=== PATIENT | male | born 1975 | race African-American/Black ===

== ENCOUNTER 2022-09-20 20:36 | Observation (INO) | payer OTHER ==
[2022-09-20 21:43] LABS: Basophils % (A) 1 %; Eosinophils # (A) 0.2 k/uL (0-0.7); Eosinophils % (A) 4 %; HCT 48.3 % (39.0-53.0); HGB 14.8 gm/dL (13.0-17.5); Lymphocytes # (A) 1.2 k/uL (1.0-4.8); Lymphocytes % (A) 18 %; MCH 29.2 pg (25.0-35.0); MCHC 30.6 g/dL (31.0-37.0); MCV 95.4 fL (80.0-100.0); Mean Platelet Volume 7.5; Monocytes # (A) 0.3 k/uL (0-1.0); Monocytes % (A) 5 %; Neutrophils # (A) 4.7 k/uL (1.3-7.7); Neutrophils % (A) 71 %; Platelet Count 302 k/uL (150-450); RBC 5.06 m/uL (4.30-5.90); RDW 15.4 % (11.5-15.5); WBC 6.6 k/uL (3.8-10.6)
[2022-09-20 21:53] LABS: ALT 19 U/L (4-49); AST 24 U/L (17-59); African American GFR (CKD) >90 (>60 ml/min/1.73 sqM); Albumin 2.7 g/dL (3.5-5.0); Alcohol <10 mg/dL; Alkaline Phosphatase 101 U/L (38-126); Amylase 241 U/L (30-110); Anion Gap 2 mmol/L; Blood Urea Nitrogen 9 mg/dL (9-20); Calcium 8.2 mg/dL (8.4-10.2); Carbon Dioxide 29 mmol/L (22-30); Chloride 109 mmol/L (98-107); Glucose 116 mg/dL (74-99); Lipase 1503 U/L (23-300); Non-African American GFR(CKD) >90 (>60 ml/min/1.73 sqM); Potassium 3.8 mmol/L (3.5-5.1); Sodium 140 mmol/L (137-145); Total Bilirubin 0.7 mg/dL (0.2-1.3)
[2022-09-20] MEDS ORDERED: ONDANSETRON 4 MG/2 ML VIAL IVP PRN (22:20)
[2022-09-20] MEDS ORDERED: NALOXONE 0.4 MG/ML 1 ML VIAL IV PRN (22:20)
--- NOTE | 2022-09-20 22:25 | ED ---
General Adult HPI - General Chief complaint: Abdominal Pain Stated complaint: Abdominal Pain Time Seen by Provider: 09/20/22 22:00 Source: patient Mode of arrival: ambulatory Limitations: no limitations - History of Present Illness Initial comments: Dictation was produced using [employer] dictation software. please excuse any grammatical, word or spelling errors. Chief Complaint: 47-year-old male presents to emergency Department with 1 week of abdominal pain History of Present Illness: Patient 47-year-old male presents to the emergency department for epigastric abdominal pain. States that he has history of pancreatitis that he had suffered 2 years ago secondary to alcohol abuse. He is currently at [facility] for alcohol detoxification. Patient states that he has significant epigastric abdominal pain. Mild nausea. He does have poor appetite. Patient was at [facility] and was sent here for further evaluation. Denies any fever, chills or night sweats. The ROS documented in this emergency department record has been reviewed and confirmed by me. Those systems with pertinent positive or negative responses have been documented in the HPI. All other systems are other negative and/or noncontributory. PHYSICAL EXAM: General Impression: Alert and oriented x3, not in acute distress HEENT: Normocephalic atraumatic, extra-ocular movements intact, pupils equal and reactive to light bilaterally, mucous membranes moist. Cardiovascular: Heart regular rate and rhythm Chest: Able to complete full sentences, no retractions, no tachypnea Abdomen: abdomen soft, epigastric palpatory tenderness, non-distended, no or ganomegaly, negative Yarbrough sign Musculoskeletal: Pulses present and equal in all extremities, no peripheral edema Motor: no focal deficits noted Neurological: CN II-XII grossly intact, no focal motor or sensory deficits noted Skin: Intact with no visualized rashes Psych: Normal affect and mood ED course: 47-year-old male presents emergency department for epigastric abdominal pain. Vital signs upon arrival are within acceptable limits. Patient's and no significant acute distress. Laboratory evaluation obtained. CBC unremarkable. Metabolic panel is unremarkable. Lipase level is 1503. L iver enzymes are normal. Patient will be admitted for alcohol induced pancreatic tenderness. Nursing notes and chart review was performed Case discussed Dr. Hinson who is willing to accept patients care for admission. Was pt. sent in by a medical professional or institution (, PA, SEISMOLOGY TEACHER, urgent care, hospital, or alf...) When possible be specific @ -[facility] Did you speak to anyone other than the patient for history (EMS, parent, family, police, friend...)? What history was obtained from this source @ -No Did you review nursing and triage notes (agree or disagree)? Why? @ -I reviewed and agree with nursing and triage notes Were old charts reviewed (outside hosp., previous admission, EMS record, old EKG, old radiological studies, urgent care reports/EKG's, alf records)? Report findings @ -No old charts were reviewed Differential Diagnosis (chest pain, altered mental status, abdominal pain women, abdominal pain men, vaginal bleeding, musculoskeletal, weakness, fever, dyspnea, syncope, headache, dizziness, GI bleed, back pain, seizure, CVA, palpatations, mental health)? @ -Differential Abdominal Pain Men: Appendicitis, cholecystitis, diverticulosis, ischemic bowel, pancreatitis, hepatitis, UTI, gastroenteritis, AAA, incarcerated hernia, bowel obstruction, co nstipation, inflammatory bowel, hepatitis, peptic ulcer disease, splenic infarction, perforated viscus, testicular torsion, this is not meant to be an all-inclusive list EKG interpreted by me (3pts min.). @ -None done X-rays interpreted by me (1pt min.). @ -None done CT interpreted by me (1pt min.). @ -None done U/S interpreted by me (1pt. min.). @ -None done What testing was considered but not performed or refused? (CT, X-rays, U/S, labs)? Why? @ -See above What meds were considered but not given or refused? Why? @ -See above Did you discuss the management of the patient with other professionals (professionals i.e. , PA, SEISMOLOGY TEACHER, lab, RT, psych nurse, social science analyst, talend developer, teacher, anti air warfare operations officer, nurse case management)? Give summary @ -See above Was smoking cessation discussed for >3mins.? @ -No Was critical care preformed (if so, how long)? @ -No Were there social determinants of health that impacted care today? How? (Homelessness, low income, unemployed, alcoholism, drug addiction, transportation, low edu. Level, literacy, decrease access to med. care, care home, rehab)? @ - Alcoholism Was there de-escalation of care discussed even if they declined (Discuss DNR or withdrawal of care, Hospice)? DNR status @ -No What co-morbidities impacted this encounter? (DM, HTN, Smoking, COPD, CAD, Cancer, CVA, ARF, Chemo, Hep., AIDS, mental health diagnosis, sleep apnea, morbid obesity)? @ -None Was patient admitted / discharged? Hospital course, mention meds given and route, prescriptions, significant lab abnormalities, going to OR and other pertinent info. @ -See above Undiagnosed new problem with uncertain prognosis? @ -No Drug Therapy requiring intensive monitoring for toxicity (Heparin, Nitro, Insulin, Cardizem)? @ -No Were any procedures done? @ -No Diagnosis/symptom? Acute, or Chronic, or Acute on Chronic? Uncomplicated (without systemic symptoms) or Complicated (systemic symptoms)? @ -1. Acute uncomplicated pancreatitis Side effects of treatment? @ -No Exacerbation, Progression, or Severe Exacerbation? @ -No Poses a threat to life or bodily function? How? (Chest pain, USA, OR, pneumonia, PE, COPD, DKA, ARF, appy, cholecystitis, CVA, Diverticulitis, Homicidal, Suicidal, threat to staff... and all critical care pts) @ -Yes - Related Data Allergies Allergy/AdvReac Type Severity Reaction Status Date / Time No Known Allergies Allergy Verified 09/20/22 20:51 Review of Systems ROS Statement: Those systems with pertinent positive or pertinent negative responses have been documented in the HPI. ROS Other: All systems not noted in ROS Statement are negative. Past Medical History Additional Past Medical History / Comment(s): pancreatitis History of Any Multi-Drug Resistant Organisms: None Reported Past Surgical History: No Surgical Hx Reported Past Psychological History: No Psychological Hx Reported Smoking Status: Current every day smoker Past Alcohol Use History: Abuse Past Drug Use History: None Reported General Exam Limitations: no limitations Course Vital Signs 09/20/22 20:48 Temperature 97.9 F Pulse Rate 60 Respiratory 20 Rate Blood Pressure 140/83 O2 Sat by Pulse 100 Oximetry Medical Decision Making - Lab Data Result diagrams: 09/20/22 21:35 09/20/22 21:35 Lab Results 09/20/22 09/20/22 Range/Units 21:35 21:35 WBC 6.6 (3.8-10.6) k/uL RBC 5.06 (4.30-5.90) m/uL Hgb 14.8 (13.0-17.5) gm/dL Hct 48.3 (39.0-53.0) % MCV 95.4 (80.0-100.0) fL MCH 29.2 (25.0-35.0) pg MCHC 30.6 L (31.0-37.0) g/dL RDW 15.4 (11.5-15.5) % Plt Count 302 (150-450) k/uL MPV 7.5 Neutrophils % 71 % Lymphocytes % 18 % Monocytes % 5 % Eosinophils % 4 % Basophils % 1 % Neutrophils # 4.7 (1.3-7.7) k/uL Lymphocytes # 1.2 (1.0-4.8) k/uL Monocytes # 0.3 (0-1.0) k/uL Eosinophils # 0.2 (0-0.7) k/uL Basophils # 0.0 (0-0.2) k/uL Sodium 140 (137-145) mmol/L Potassium 3.8 (3.5-5.1) mmol/L Chloride 109 H (98-107) mmol/L Carbon Dioxide 29 (22-30) mmol/L Anion Gap 2 mmol/L BUN 9 (9-20) mg/dL Creatinine 0.63 L (0.66-1.25) mg/dL Est GFR (CKD-EPI)AfAm >90 (>60 ml/min/1.73 sqM) Est GFR (CKD-EPI)NonAf >90 (>60 ml/min/1.73 sqM) Glucose 116 H (74-99) mg/dL Calcium 8.2 L (8.4-10.2) mg/dL Total Bilirubin 0.7 (0.2-1.3) mg/dL AST 24 (17-59) U/L ALT 19 (4-49) U/L Alkaline Phosphatase 101 (38-126) U/L Total Protein 6.0 L (6.3-8.2) g/dL Albumin 2.7 L (3.5-5.0) g/dL Amylase 241 H (30-110) U/L Lipase 1503 H (23-300) U/L Serum Alcohol <10 mg/dL Disposition Clinical Impression: Pancreatitis Disposition: ADMITTED IP TO THIS HOSP Condition: Fair Referrals: Nonstaff,Physician [Primary Care Provider] - 1-2 days Decision Time: 22:25
[2022-09-20] MEDS: SODIUM CHLORIDE 0.9% 1,000 ML IV SCH (22:32)
[2022-09-20] MEDS: HYDROmorphone 1 MG/ML 1 ML SYRINGE IVP PRN (22:41)
[2022-09-21] MEDS: HYDROmorphone 1 MG/ML 1 ML SYRINGE IVP PRN ×2 (03:38→07:33)
[2022-09-21] MEDS: SODIUM CHLORIDE 0.9% 1,000 ML IV SCH ×3 (05:49→21:00)
[2022-09-21 07:48] LABS: Glucose,Whole Blood 82 mg/dL (70-110)
[2022-09-21] MEDS: MORPHINE SULFATE 4 MG/ML SYRINGE IVP PRN ×3 (11:56→20:55)
[2022-09-21 12:01] LABS: Basophils % (A) 1 %; Eosinophils # (A) 0.2 k/uL (0-0.7); Eosinophils % (A) 5 %; HCT 46.9 % (39.0-53.0); HGB 14.2 gm/dL (13.0-17.5); Hypochromasia Slight; Lymphocytes % (A) 24 %; MCH 29.6 pg (25.0-35.0); MCHC 30.2 g/dL (31.0-37.0); Mean Platelet Volume 7.1; Monocytes # (A) 0.2 k/uL (0-1.0); Monocytes % (A) 5 %; Neutrophils # (A) 2.8 k/uL (1.3-7.7); Neutrophils % (A) 64 %; Platelet Count 256 k/uL (150-450); RBC 4.79 m/uL (4.30-5.90); RDW 15.5 % (11.5-15.5); WBC 4.4 k/uL (3.8-10.6)
[2022-09-21 12:16] LABS: African American GFR (CKD) >90 (>60 ml/min/1.73 sqM); Anion Gap 1 mmol/L; Blood Urea Nitrogen 7 mg/dL (9-20); Calcium 8.1 mg/dL (8.4-10.2); Carbon Dioxide 29 mmol/L (22-30); Chloride 109 mmol/L (98-107); Glucose 120 mg/dL (74-99); Lipase 1119 U/L (23-300); Non-African American GFR(CKD) >90 (>60 ml/min/1.73 sqM); Potassium 3.5 mmol/L (3.5-5.1); Sodium 139 mmol/L (137-145)
[2022-09-21] MEDS: hydrOXYzine pamoate 25 MG CAP PO PRN (12:17)
--- NOTE | 2022-09-21 18:37 | P.HPIM ---
History of Present Illness H&P Date: 09/21/22 Chief Complaint: Abdominal pain 47-year-old male presents to the emergency department for epigastric abdominal pain. States that he has history of pancreatitis that he had suffered 2 years ago secondary to alcohol abuse. He is currently at [facility] for alcohol detoxification. Patient states that he has significant epigastric abdominal pain. Mild nausea. He does have poor appetite. Patient was at [facility] and was sent here for further evaluation. Denies any fever, chills or night sweats. Blood work completed in the ER reveals a WBC of 6.6, hemoglobin 14.8 and platelet count of 302, sodium 140, potassium 2.8, BUN/creatinine of 9/0.63; amylase is elevated at 241 and lipase of 1503; blood alcohol level is negative Review of Systems REVIEW OF SYSTEMS: CONSTITUTIONAL: No fever, no malaise, no fatigue. HEENT: No recent visual problems or hearing problems. Denied any sore throat. CARDIOVASCULAR: No chest pain, orthopnea, PND, no palpitations, no syncope. PULMONARY: No shortness of breath, no cough, no hemoptysis. GASTROINTESTINAL: No diarrhea, no nausea, no vomiting, no abdominal pain. NEUROLOGICAL: No headaches, no weakness, no numbness. HEMATOLOGICAL: Denies any bleeding or petechiae. GENITOURINARY: Denies any burning micturition, frequency, or urgency. MUSCULOSKELETAL/RHEUMATOLOGICAL: Denies any joint pain, swelling, or any muscle pain. ENDOCRINE: Denies any polyuria or polydipsia. The rest of the 14-point review of systems is negative. Past Medical History Additional Past Medical History / Comment(s): pancreatitis History of Any Multi-Drug Resistant Organisms: None Reported Past Surgical History: No Surgical Hx Reported Past Psychological History: No Psychological Hx Reported Smoking Status: Current every day smoker Past Alcohol Use History: Abuse Past Drug Use History: None Reported Medications and Allergies Home Medications Medication Instructions Recorded Confirmed Type Ibuprofen [Motrin Ib] 600 mg PO Q6H PRN 09/21/22 09/21/22 History Insulin Aspart [NovoLOG Flexpen] See Protocol SQ DIRECTED 09/21/22 09/21/22 History Insulin Glargine,Hum.rec.anlog 15 units SQ DAILY@0615,0900 09/21/22 09/21/22 History [Lantus Solostar Pen] Omeprazole [PriLOSEC] 20 mg PO BID@0615,1630 09/21/22 09/21/22 History Simethicone [Simethicone Chew] 80 mg PO DAILY@0615 09/21/22 09/21/22 History Allergies Allergy/AdvReac Type Severity Reaction Status Date / Time No Known Allergies Allergy Verified 09/21/22 11:18 Physical Exam Vitals: Vital Signs Temp Pulse Resp BP Pulse Ox 09/21/22 06:30 53 L 16 116/77 100 09/21/22 02:00 52 L 16 118/79 99 09/21/22 01:10 54 L 16 130/101 99 09/20/22 23:08 98.4 F 57 L 16 141/99 100 09/20/22 20:48 97.9 F 60 20 140/83 100 Intake and Output 09/20/22 09/21/22 09/21/22 22:59 06:59 14:59 Other: Weight 75.296 kg PHYSICAL EXAMINATION: GENERAL: The patient is alert and oriented x3, not in any acute distress. Well developed, well nourished. HEENT: Pupils are round and equally reacting to light. EOMI. No scleral icterus. No conjunctival pallor. Normocephalic, atraumatic. No pharyngeal erythema. No thyromegaly. CARDIOVASCULAR: S1 and S2 present. No murmurs, rubs, or gallops. PULMONARY: Chest is clear to auscultation, no wheezing or crackles. ABDOMEN: Soft, nontender, nondistended, normoactive bowel sounds. No palpable organomegaly. MUSCULOSKELETAL: No joint swelling or deformity. EXTREMITIES: No cyanosis, clubbing, or pedal edema. NEUROLOGICAL: Gross neurological examination did not reveal any focal deficits. SKIN: No rashes. Results CBC & Chem 7: 09/21/22 11:47 09/21/22 11:47 Labs: Abnormal Lab Results - Last 24 Hours (Table) 09/20/22 09/20/22 Range/Units 21:35 21:35 MCHC 30.6 L (31.0-37.0) g/dL Chloride 109 H (98-107) mmol/L Creatinine 0.63 L (0.66-1.25) mg/dL Glucose 116 H (74-99) mg/dL Calcium 8.2 L (8.4-10.2) mg/dL Total Protein 6.0 L (6.3-8.2) g/dL Albumin 2.7 L (3.5-5.0) g/dL Amylase 241 H (30-110) U/L Lipase 1503 H (23-300) U/L Assessment and Plan Assessment: 1. Acute pancreatitis - Patient has been placed on IV fluids, IV Protonix; clear liquid diet; pain controlled with IV morphine 4 mg every 4 hours when necessary - Patient initially requested Dilaudid due to uncontrolled pain with morphine but later indicated that Dilaudid is causing him itching and requested to be transitioned back to IV morphine but requested IV Benadryl along with morphine and requesting increased dose; patient is currently sitting up in bed eating Popsicle; reports he is pain-free at this time because of receiving IV morphine just about 15 minutes ago - Patient does seem to be any distress; we will not increase morphine at this time; patient will be given Vistaril for itching 2. Diabetes mellitus; we will monitor Accu-Cheks every before meals and at bedtime with insulin sliding scale; patient can be placed on Lantus 15 units home dose once diet is advanced 3. Gastroesophageal reflux disease; Protonix 40 mg daily DVT prophylaxis; SCDs CODE STATUS; full code
[2022-09-22 02:13] VITALS: RESP 17
[2022-09-22] MEDS: MORPHINE SULFATE 4 MG/ML SYRINGE IVP PRN ×3 (04:14→13:01)
[2022-09-22 06:05] LABS: Glucose,Whole Blood 127 mg/dL (70-110)
[2022-09-22] MEDS: hydrOXYzine pamoate 25 MG CAP PO PRN ×2 (06:30→14:54)
[2022-09-22 08:53] VITALS: BP 128/72; PULSE 61; TEMP 97.9
[2022-09-22 09:12] LABS: African American GFR (CKD) 130.2 (60.0-200.0); Anion Gap 4.8 mmol/L (10.00-18.00); BUN/Creat Ratio 5.86 Ratio (12.00-20.00); Blood Urea Nitrogen 4.1 mg/dL (9.0-27.0); Calcium 8.2 mg/dL (8.7-10.3); Carbon Dioxide 26.2 mmol/L (20.0-27.5); Non-African American GFR(CKD) 112.4 (60.0-200.0)
--- NOTE | 2022-09-23 05:55 | P.DS ---
Providers Date of admission: 09/20/22 22:20 Attending physician: Jose Rafael Hinson Primary care physician: Sonny Morgan [facility] Course: Final diagnosis -Acute pancreatitis, likely due to continued alcohol use -History of extensive alcohol abuse currently in alcohol rehab -Diabetes mellitus, insulin-dependent, uncontrolled with hypoglycemia most likely secondary to poor oral intake -Gastroesophageal reflux disease -Continued ongoing nicotine abuse -DVT prophylaxis; SCDs -full code Discharge disposition Patient is being discharged in a stable condition with guarded prognosis to [facility] for continued alcohol rehab. Patient will follow-up with in the outpatient setting upon discharge. Patient is to continue with hemodialysis as scheduled. Total time taken is greater than 35 minutes. Hospital course This is a 47-year-old male who was recently admitted with abdominal pain nausea and vomiting and poor oral intake being closely monitored. Patient was recently at [facility] for the last couple of days and developed abdominal pain and sent to the ER for further evaluation. Patient found to have elevated lipase and admitted for pancreatitis. Patient was placed on IV hydration along with pain management and lipase is 90 this morning patient reports improvement in nausea and encouraged oral intake. Patient will be started on low fiber diet and slowly advance as tolerated. Patient is medically stable and will be transferred back to [facility] today for continued alcohol rehab. Currently no reports of chest pain, shortness of breath, or palpitations. Patient is afebrile. No reports of nausea or vomiting and patient is tolerating diet. Patient will be discharged back to [facility] rehab for continued care. Encourage the patient to follow-up with primary care provider on discharge along with calling insurance to request a possible GI specialist in the outpatient setting. Physical exam: Gen: This is a 47-year-old male who is awake, alert and oriented 3, well- developed, well-nourished HEENT: Head is atraumatic, normocephalic. Pupils equal, round. Sclerae is anicteric. NECK: Supple. No JVD. No lymphadenopathy. No thyromegaly. LUNGS: Clear to auscultation. No wheezes or rhonchi. No intercostal retrac tions. HEART: Regular rate and rhythm. No murmur. ABDOMEN: Soft. Bowel sounds are present. No masses. No tenderness. EXTREMITIES: No pedal edema. No calf tenderness. NEUROLOGICAL: Patient is awake, alert and oriented x3. Cranial nerves 2 through 12 are grossly intact. Please refer to medication reconciliation sheet for a list of medications. The impression and plan of care has been dictated by Eva Finnegan, Nurse Practitioner as directed. Dr. Lynn MD I have performed a history and examination and MDM of this patient, discussed the same with the dictator, and agree with the dictator's assessment and plan as written ,documented as a scribe. Based on total visit time, I have performed more than 50% of the visit. Patient Condition at Discharge: Fair Plan - Discharge Summary Discharge Rx Participant: Yes New Discharge Prescriptions: Continue Insulin Glargine,Hum.rec.anlog [Lantus Solostar Pen] 15 units SQ DAILY@0615,0900 Omeprazole [PriLOSEC] 20 mg PO BID@0615,1630 Insulin Aspart [NovoLOG Flexpen] See Protocol SQ DIRECTED Ibuprofen [Motrin Ib] 600 mg PO Q6H PRN PRN Reason: Pain Simethicone [Simethicone Chew] 80 mg PO DAILY@0615 Discharge Medication List Ibuprofen [Motrin Ib] 600 mg PO Q6H PRN 09/21/22 [History] Insulin Aspart [NovoLOG Flexpen] See Protocol SQ DIRECTED 09/21/22 [History] Insulin Glargine,Hum.rec.anlog [Lantus Solostar Pen] 15 units SQ DAILY@0615,0900 09/21/22 [History] Omeprazole [PriLOSEC] 20 mg PO BID@0615,1630 09/21/22 [History] Simethicone [Simethicone Chew] 80 mg PO DAILY@0615 09/21/22 [History] Follow up Appointment(s)/Referral(s): Nonstaff,Physician [REFERRING] - 1-2 days Patient Instructions/Handouts: Pancreatitis (DC) Activity/Diet/Wound Care/Special Instructions: Patient is returning to [facility] Recommend follow-up with primary care provider on discharge Please call insurance company and discuss with them about GI (Gastrointestinal specialists that accept your insurance) for outpatient follow-up Slowly advanced diet as tolerated Discharge Disposition: OTHER INSTITUTION NOT DEFINED
== END 2022-09-22 15:37 | disposition other institution (70) ==
LOC: EC 20:36 → 5NMEDONC 22:20 → INTOOBSV 22:20 → 5NMEDONC 09-21 02:19 → 4SSUR 09-21 17:39 → UNDODISIN 09-22 15:37
PROVIDERS: ADMIT Internal Medicine; ATTEND Internal Medicine
DX: K85.90 Acute pancreatitis without necrosis or infection, unspecified (principal); K21.9 Gastro-esophageal reflux disease without esophagitis; F10.10 Alcohol abuse, uncomplicated; F17.200 Nicotine dependence, unspecified, uncomplicated; Y90.0 Blood alcohol level of less than 20 mg/100 ml
CPT/HCPCS: 96376 ×3; 96374; 96375; 99285; 36415; 80053; 80048 ×2; 82150; 83690 ×3; 85025 ×2; 80320; G0378 ×3; J2270 ×2; J1170 ×2